=== PATIENT | male | born 1995 | race Caucasian/White ===

== ENCOUNTER 2018-09-28 20:36 | Emergency (ER) | payer SELFPAY ==
[2018-09-28] MEDS ORDERED: MUPI22OI2 TOP (21:03)
--- NOTE | 2018-09-28 21:12 | ERD ---
ER Documentation Chief Complaint Chief Complaint Right eye swelling HPI 22-year-old male presents for right eye swelling x2 months. The swelling is noted over the right lower eyelid. Patient states that he has 5 out of 10 pain intermittently. The lesion was there previously and resolved on its own however they returned. Denies any fevers or chills. He has been using warm compresses with some relief however the lesions returned. No other modifying factors noted, no other treatments tried at home. ROS All systems reviewed and are negative except as per history of present illness. Medications Home Meds Active Scripts Mupirocin* (Bactroban*) 2% -22 Gram Oint...g., 1 APPLIC TOP BID for stye for 7 Days, #1 TUB SITE OF APPLICATION: Prov:EVIE BELL DO 09/28/18 PMhx/Soc Medical and Surgical Hx: pt denies Medical Hx, pt denies Surgical Hx Hx Alcohol Use: Yes Hx Substance Use: No Hx Tobacco Use: No Smoking Status: Never smoker Physical Exam Vitals Vital Signs Date Temp Pulse Resp B/P (MAP) Pulse Ox O2 O2 Flow FiO2 Time Delivery Rate 09/28/18 98.4 66 17 110/59 98 Room Air 21:25 (76) Physical Exam Const: No acute distress Head: Atraumatic, Eyes: Normal Conjunctiva, EOMI, PERRL, right lower eyelid nodule about 3 mm, with mild fluctuation and erythema ENT: Normal External Ears, Nose and Mouth. Neck: Full range of motion. No meningismus. Resp: Clear to auscultation bilaterally Cardio: Regular rate and rhythm, no murmurs Skin: No petechiae or rashes Ext: No cyanosis, or edema Neur: Awake and alert Psych: Normal Mood and Affect Procedures/MDM Medical Decision Making: Differential diagnosis includes but not limited to stye, chalazion, xanthelasma Patient appeared well on physical exam. Physical examination consistent with a right lower eyelid stye. Patient advised to continue with warm compresses, patient given prescription for topical antibiotic Advised that his lesion does not resolve that he will need incision and drainage done by an death claim clerk. Information for follow-up given to patient. Patient advised to follow up with PCP in 1-2 days. Patient advised to return to ED for new or worsening symptoms. Patient stable on discharge from the ED. Disclaimer: Inadvertent spelling and grammatical errors are likely due to EHR/dictation software use and do not reflect on the overall quality of patient care. Also, please note that the electronic time recorded on this note does not necessarily reflect the actual time of the patient encounter. Departure Diagnosis: Primary Impression: Stye Laterality: right Eyelid: lower Qualified Codes: H00.012 - Hordeolum externum right lower eyelid Condition: Fair Patient Instructions: When Your Child Has a Stye Referrals: [facility] YOU HAVE RECEIVED A MEDICAL SCREENING EXAM AND THE RESULTS INDICATE THAT YOU DO NOT HAVE A CONDITION THAT REQUIRES URGENT TREATMENT IN THE EMERGENCY DEPARTMENT. FURTHER EVALUATION AND TREATMENT OF YOUR CONDITION CAN WAIT UNTIL YOU ARE SEEN IN YOUR DOCTORS OFFICE WITHIN THE NEXT 1-2 DAYS. IT IS YOUR RESPONSIBILITY TO MAKE AN APPOINTMENT FOR FOLOW-UP CARE. IF YOU HAVE A PRIMARY DOCTOR --you should call your primary doctor and schedule an appointment IF YOU DO NOT HAVE A PRIMARY DOCTOR YOU CAN CALL OUR PHYSICIAN REFERRAL HOTLINE AT IF YOU CAN NOT AFFORD TO SEE A PHYSICIAN YOU CAN CHOSE FROM THE FOLLOWING [facility] [address] [facility]. [facility] [address] [facility] [facility] [address] [facility] [facility] [address] [facility] [facility] [address] [facility]. [facility]. [address] [facility] [facility] [place] Hours: Mon - Fri 9:00 AM - 5:00 PM Additional Instructions: Call your primary care doctor TOMORROW for an appointment during the next 1-2 days.See the doctor sooner or return here if your condition worsens before your appointment time. EVIE BELL DO September 28, 2018 21:12
[2018-09-28 21:25] VITALS: BP 110/59; PULSE 66; RESP 17
== END 2018-09-28 21:25 | disposition home or self-care (01) ==
LOC: FTE 20:36
DX: H00.012 Hordeolum externum right lower eyelid (principal)
CPT/HCPCS: 99283